=== PATIENT | female | born 1985 | race Caucasian/White ===

== ENCOUNTER → 2016-10-29 | Outpatient (CLI) | payer BC ==
[~2016-10-29] MED LIST: CHOLTAB3 PO; LEVOPOW36; PRENTAB26 PO
== END | disposition home or self-care (01) ==
LOC: C.LAB1850 13:49
PROVIDERS: ATTEND Nurse Practitioner Adult Health
DX: E06.3 Autoimmune thyroiditis (principal)

== ENCOUNTER → 2016-12-31 | Outpatient (CLI) | payer BC | END | disposition home or self-care (01) | LOC: C.PAPS 11:18 | PROVIDERS: ATTEND Obstetrics & Gynecology | DX: Z01.411 Encounter for gynecological examination (general) (routine) with abnormal findings (principal); R87.610 Atypical squamous cells of undetermined significance on cytologic smear of cervix (ASC-US) ==

== ENCOUNTER → 2017-10-15 | Outpatient (CLI) | payer BC | END | disposition home or self-care (01) | LOC: C.LAB1850 15:11 | PROVIDERS: ATTEND Nurse Practitioner Family | DX: E03.9 Hypothyroidism, unspecified (principal); E06.3 Autoimmune thyroiditis ==

== ENCOUNTER 2021-01-19 07:30 | Inpatient (IN) ==
--- NOTE | 2021-01-11 09:40 | Anesthesiology Consultation ---
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 Preoperative COVID19 testing to be completed on 01/17. Chart Review Chart Review: entry processor initiated History Surgery Operation Date: 01/19/21 07:30 Proposed Procedures p Section ( Delivery of Baby Throught Abdominal Inciaion) - Caitlin Corral MD Height/Weight Height: 5 ft 4 in Weight: 76.204 kg Allergies Allergy/AdvReac Type Severity Reaction Status Date / Time No Known Allergies Allergy U Verified 01/10/21 15:01 Medications Home Medications Medication Instructions Recorded Confirmed Last Taken levothyroxine 75 mcg PO QAM 01/05/21 01/10/21 01/04/21 08:00 prenat.vits,katherine,kjj-flbx-ncmed 1 tab PO DAILY 01/05/21 01/10/21 01/04/21 21:00 [ Vitamin] cholecalciferol (vitamin D3) 25 mcg PO QAM 01/10/21 01/10/21 Unknown [Vitamin D3] Past Medical History Medical History Hx of endometriosis Hypothyroidism Varicose vein of leg Past Family History Family History Grandmother (Paternal) Breast cancer Grandmother (Maternal) Family history of diabetes mellitus Other No family history of adverse response to anesthesia Denies family history of Ovarian cancer Prostate cancer Myocardial infarction Colorectal cancer Past Surgical History Surgical History H/O shoulder surgery RT History of cholecystectomy S/P laparoscopic procedure [place] teeth removed Social History Smoking Status: Never smoker Hx Alcohol Use: No Alcohol type: wine Hx Substance Use: No substance use type: does not use
[~2021-01-19 07:30] MED LIST changes: -CHOLTAB3 PO; -LEVOPOW36; +LIDOCAINE 2% MPF LOCAL 5 ML VIAL INFIL ONE; +METOCLOPRAMIDE HCL INJ 5 MG/ML 2 ML VIAL ONE; +MoRPHine SULFATE PF 1 MG/ML 10 ML AMP/VIAL ONE; +ONDANSETRON INJ 2 MG/ML 2 ML VIAL ONE; +OXYTOCIN 10 UNITS/ML VIAL ONE; -PRENTAB26 PO; +PROPOFOL IV EMULSION 10 MG/ML 20 ML VIAL IV ONE
[2021-01-19] MEDS ORDERED: OXYTOCIN 30 UNITS/500 ML BAG IV PRN ×2 (07:49→07:51)
[2021-01-19] MEDS ORDERED: PENICILLIN G POTASSIUM 6 MU in DEXTROSE 5% 250 ML IV STA (07:49)
--- NOTE | 2021-01-19 08:04 | History & Physical Report ---
Date of Service January 19, 2021 Assessment & Plan Admission and Anticipated Discharge Date Admission Date: January 19, 2021 IUP at 39+ weeks with vertex position today - history of breech position. vertex for the past 2 weeks begin PCN G for GBS prophylaxis pitocin induction protocol epidural when requested anticipate vaginal History of Present Illness Primary Care Provider: Brittney Aguirre MD Patient is a 35 yo white female who presents at 39+ weeks for continuation of IOL because of unstable lie. Baby had been breech with unsuccessful version attempt but spontaneously verted to cephalic 2 weeks ago. cervical balloon was placed last night after confirming baby was still vertex. balloon not expelled yet but she did experience bloody show and cramping intermittently overnight. GBS positive Allergies Allergy/AdvReac Type Severity Reaction Status Date / Time No Known Allergies Allergy U Verified 01/18/21 13:22 Home Medications Medication Instructions Recorded Confirmed Type cholecalciferol (vitamin D3) 25 mcg PO DAILY 01/18/21 01/18/21 History [Vitamin D3] levothyroxine 75 mcg PO DAILY 01/18/21 01/18/21 History vit no.[id number] 1 tab PO DAILY 01/18/21 01/18/21 History [ Vitamin] Patient History Medical History Hx of endometriosis Hypothyroidism Varicose vein of leg Surgical History H/O shoulder surgery RT History of cholecystectomy S/P laparoscopic procedure [place] teeth removed Family History Grandmother (Paternal) Breast cancer Grandmother (Maternal) Family history of diabetes mellitus Other No family history of adverse response to anesthesia Denies family history of Ovarian cancer Prostate cancer Myocardial infarction Colorectal cancer Social History Smoking Status: Never smoker Second Hand Exposure: No; Hx Alcohol Use: No Hx Substance Use: No Preferred Language: Bulgarian Communication Ability: Effective Visual Impairment: No Limitations Hearing Ability: Normal Commissary Clerk Required: No Beliefs That Will Affect Care: None marital status: marital status details: Thor Lara [phone] Current Living Situation: Spouse Current Living Situation Comment: lives with spouse, daughter, dogs current occupational status: employed current occupation: MENTAL HEALTH PROFESSIONAL Feels Safe at Home: Yes Safety Concerns: Feels Safe At This Time Childhood Exposure to Second-Hand Smoke: Yes Dental Care, Regularly: Yes Physical Activity Frequency: Daily Seatbelt Use: always Sunscreen Use: Yes Assistive Devices: None Assistive Devices Comment: GLASSES FOR DRIVING ONLY Review of Systems All systems reviewed & are unremarkable except as noted in HPI & below Physical Exam Constitutional: WD/WN, vitals as above Respiratory: normal respiratory effort, lungs clear to auscultation Cardiovascular: RRR, no murmur, no edema Psychiatric: A+Ox3, euthymic affect Genitourinary: OB Exam Abdomen: + vertex (by cervix exam and sonogram this AM) and + irregular contractions Manual OB Exam: + cervical dilation 4 cm, + cervical effacement 70% and + station high (-3) OB Exam Monitor Tracing: + external FHT monitor used, + external uterine monitor used, + category I and + normal FHT variability balloon still in vagina- water removed and perdomo removed easily Results & Data ([facility]) Vital Signs (Past 12 Hours) Vital Signs Pulse BP 01/19/21 07:48 79 114/72 Coding Level of Care Code None
[2021-01-19 08:25] LABS: Hemoglobin 13.3 g/dL (12.0-16.0); Mean Corpuscular Hemoglobin 31.9 pg (25-34); Mean Corpuscular Hgb Conc 34.1 g/dL (32-36); Mean Corpuscular Volume 93.5 fL (80-100); Mean Platelet Volume 9.7 fL (7.4-10.4); Platelet Count 157 K/uL (130-400); RDW Coefficient of Variation 13.1 % (11.5-14.5); RDW Standard Deviation 44.6 fL (36.4-46.3); Red Blood Count 4.17 M/uL (4.2-5.4); White Blood Count 10.71 K/uL (4.8-10.8)
[2021-01-19] MEDS: LACTATED RINGER'S 1,000 ML IV PRN ×2 (08:30→14:58)
--- NOTE | 2021-01-19 09:01 | Labor Progress Brief Note ---
Date of Service January 19, 2021 Subjective Admit for IOL due to unstable lie, currently Vtx by US this AM per Dr. Foley. Kiki O'N removed this AM. No LOF or VB. Good FM. Assessment & Plan (1) Unstable lie, antepartum: Had scheduled CS for breech today but fetus now vertex so undergoing IOL. PCN for GBS. Will AROM after 2nd dose abx. Pit ordered. Epidural on request. Admission and Anticipated Discharge Date Admission Date: January 19, 2021 Physical Exam Physical Exam: Ctx Q5 irreg Cvx 4cm per Dr. Foley FHT Cat 1 PCN now running Pitocin ordered [facility] & [facility]) Vital Signs (Past 12 Hours) Vital Signs Temp Pulse Resp BP 01/19/21 08:16 98.6 F 79 18 114/72 01/19/21 07:48 79 114/72 Coding Level of Care Code None Diagnoses Unstable lie, antepartum O32.0XX0
[2021-01-19] MEDS: LEVOTHYROXINE SODIUM 75 MCG TABLET PO SCH (10:57)
[2021-01-19] MEDS: PENICILLIN G POTASSIUM 3 MU in DEXTROSE 5% 100 ML IV PRN ×2 (12:54→16:58)
[2021-01-19] MEDS ORDERED: ePHEDrine sulfate 50 MG/ML AMP ONE (14:35)
[2021-01-19] MEDS ORDERED: BUPIVACAINE 0.25% 30 ML VIAL ONE (14:35)
[2021-01-19] MEDS ORDERED: SODIUM CHLORIDE 0.9% INJ 10 ML VIAL ONE (14:35)
[2021-01-19] MEDS ORDERED: fentaNYL citrate 100 MCG/2 ML VIAL ONE (14:35)
[2021-01-19] MEDS ORDERED: fentaNYL 2MCG/ML ROPIVACAINE 1.25MG/ML 100 ML BAG EPI ONE (14:35)
[2021-01-19] MEDS ORDERED: NALOXONE HCL 1 MG in SODIUM CHLORIDE 0.9% 1000ML 1,000 ML IV PRN (15:09)
[2021-01-19] MEDS ORDERED: ePHEDrine sulfate 50 MG/ML AMP IV PRN (15:09)
[2021-01-19] MEDS ORDERED: ONDANSETRON INJ 2 MG/ML 2 ML VIAL IV PRN (15:09)
[2021-01-19] MEDS ORDERED: fentaNYL 2MCG/ML ROPIVACAINE 1.25MG/ML 100 ML BAG EPI PRN (15:09)
[2021-01-19] MEDS ORDERED: NALOXONE HCL 0.4 MG/1 ML VIAL/CARP IV PRN (15:09)
--- NOTE | 2021-01-19 20:25 | Delivery Summary ---
Vaginal Delivery Summary Date of Service January 19, 2021 Vaginal Delivery Summary DIAGNOSES: 1. Santoro intrauterine at 39w2d gestation. 2. Induction of labor. 3. Group B Streptococcus Pos. PROCEDURE: Spontaneous vaginal delivery and repair of second degree laceration. SURGEON: Caitlin Corral MD. COMMAND CENTER OFFICER: None. ESTIMATED BLOOD LOSS: 300 mL. COMPLICATIONS: None. PLACENTA: Spontaneous and intact with a 3-vessel cord. DISPOSITION: Stable to labor and delivery. DESCRIPTION: The patient pushed well and brought the head to in DOA position. Due to bradycardia, prep with betadine was done and straight catheter was used to empty the bladder of 100cc of clear yellow urine while the patient and FOB were counseled on the possible need for VAVD, and a Kiwi was placed on the table. However the mother pushed very effectively and it was not ultimately felt to be necessary to apply the Kiwi. The infant's head delivered and restituted facing maternal left, with the perineum protected during this time. There was a very tight nuchal cord. As the mother strained and before the cord could be reduced, the cord avulsed. The left shoulder was anterior and the right hand was presenting compound alongside the R cheek/shoulder. The mother was encouraged to push immediately due to the cord avulsion, which she did. The shoulders and body delivered immediately, and the was placed on the maternal abdomen where the approximately 1cm stump of cord at the umbilicus was pinched and then secured with a cord clamp. The infant was vigorous and moving all extremities, and making respiratory efforts. The placenta delivered spontaneously and was noted to be intact and with a 3VC. The cervix, vagina and perineum were examined and were found to have a small second- degree laceration which was repaired using vicryl suture in the usual manner. The fundus was firm and lochia minimal immediately after delivery. [facility] Vaginal Delivery Charge Vaginal Delivery Codes: 42024 global code for the antepartum, delivery, and post-
[2021-01-19] MEDS ORDERED: SUPERCREAM 0.870% 15 GM JAR EXT PRN (20:28)
[2021-01-19] MEDS ORDERED: DIPHTHERIA/TETANUS/PERTUSSIS 0.5 ML SYR/VIAL IM ONE (20:28)
[2021-01-19] MEDS ORDERED: oxyCODONE/ACETAMINOPHEN 5mg/325mg TAB PO PRN (20:28)
[2021-01-19] MEDS ORDERED: BENZOCAINE 20% AER SPR 82.5 GM CAN EXT PRN (20:28)
[2021-01-19] MEDS ORDERED: ACETAMINOPHEN 325 MG TAB PO PRN (20:28)
[2021-01-19] MEDS ORDERED: HYDROCORTISONE ACETATE 25 MG SUPP PR PRN (20:28)
--- NOTE | 2021-01-19 21:25 | Anesthesia Procedure Note ---
Date of Service January 19, 2021 Anesthesia Post Epidural Note Vital Signs Vital Signs: Temp Pulse Resp BP Pulse Ox 36.8 C 91 H 20 106/58 L 99 01/19/21 19:07 01/19/21 21:15 01/19/21 19:45 01/19/21 21:15 01/19/21 20:07 Pain Intensity Abdomen: Pain Intensity: 0 Notes Mental Status: alert / awake / arousable and participated in evaluation Nausea / Vomiting: adequately controlled Pain: adequately controlled Airway Patency, RR, SpO2: stable & adequate BP & HR: stable & adequate Hydration State: stable & adequate Neuraxial Anesthesia: was administered and sensory block is resolving Anesthetic Complications: no major complications apparent Epidural: Removed without complications and With tip intact
[2021-01-19] MEDS: DOCUSATE SODIUM 100 MG CAP PO SCH (21:46)
[2021-01-20] MEDS: IBUPROFEN 600 MG TAB PO PRN ×2 (04:19→21:35)
--- NOTE | 2021-01-20 06:14 | Obstetrical Progress Note ---
Date of Service January 20, 2021 Assessment & Plan (1) state: Recovering normally from with 2nd degree repair. Prefers to stay to PPD#2 Subjective Ambulation: ambulating normally Voiding: no voiding problems Passing Gas:: Yes Diet Tolerance:: regular diet Lochia:: Small Feeding Type:: breast feeding Physical Exam Constitutional WD/WN, vitals as above Eyes PERRL, conjunctivae normal, anicteric sclerae Neck normal visual inspection Respiratory normal respiratory effort and able to speak in complete sentences; no respiratory distress and no labored breathing Cardiovascular Rate/Rhythm: regular rate and regular rhythm Extremities: no edema Chest (Breasts) Chest: normal inspection of chest Gastrointestinal (Abdomen) Inspection/Auscultation: abdomen normal to inspection Soft, postgravid Psychiatric A+Ox3, euthymic affect Genitourinary OB Exam Abdomen: + fundal height Fundus: + firm and + relation to umbilicus (fundus just below umbilicus); not tender Results & Data ([facility]) Vital Signs (Past 12 Hours) Vital Signs Temp Pulse Pulse Resp BP BP Pulse Ox 01/20/21 04:10 98.6 F 81 16 111/71 95 01/19/21 23:36 99.0 F 87 16 105/65 94 01/19/21 22:45 18 01/19/21 22:10 18 01/19/21 22:00 91 H 110/64 01/19/21 21:45 102 H 106/61 01/19/21 21:40 18 01/19/21 21:30 101 H 102/56 L 01/19/21 21:15 91 H 106/58 L 01/19/21 21:10 18 01/19/21 21:00 97 H 115/60 01/19/21 20:55 18 01/19/21 20:45 99 H 121/65 01/19/21 20:40 18 01/19/21 20:30 87 118/60 01/19/21 20:25 97.7 F 18 01/19/21 20:15 95 H 125/61 01/19/21 20:10 18 01/19/21 20:07 103 H 99 01/19/21 20:06 92 H 131/65 01/19/21 20:02 98 H 98 01/19/21 19:57 100 H 100 01/19/21 19:54 101 H 90 01/19/21 19:52 108 H 73 L 01/19/21 19:51 117 H 159/84 H 01/19/21 19:49 114 H 86 L 01/19/21 19:47 112 H 100 01/19/21 19:45 20 01/19/21 19:43 102 H 85 L 01/19/21 19:42 100 H 100 01/19/21 19:38 91 H 89 L 01/19/21 19:37 88 121/70 100 01/19/21 19:32 85 96 01/19/21 19:31 86 92 01/19/21 19:27 81 100 01/19/21 19:25 18 01/19/21 19:23 77 119/67 01/19/21 19:22 77 100 01/19/21 19:17 82 98 01/19/21 19:12 84 99 01/19/21 19:07 98.2 F 84 18 117/70 100 01/19/21 19:02 89 100 01/19/21 19:00 18 01/19/21 18:57 86 100 01/19/21 18:52 86 111/70 100 01/19/21 18:47 86 100 01/19/21 18:45 18 01/19/21 18:42 82 99 01/19/21 18:37 76 100 01/19/21 18:36 75 113/69 01/19/21 18:32 80 100 01/19/21 18:27 80 99 01/19/21 18:22 77 99 01/19/21 18:20 80 109/62 01/19/21 18:17 90 100 01/19/21 18:15 18
[2021-01-20] MEDS: LEVOTHYROXINE SODIUM 75 MCG TABLET PO SCH (06:22)
[2021-01-20 07:11] LABS: Hematocrit (blood only) 38.6 % (37-47); Hemoglobin 13.1 g/dL (12.0-16.0); Mean Corpuscular Hemoglobin 31.9 pg (25-34); Mean Corpuscular Hgb Conc 33.9 g/dL (32-36); Mean Corpuscular Volume 93.9 fL (80-100); Platelet Count 170 K/uL (130-400); RDW Coefficient of Variation 13.1 % (11.5-14.5); RDW Standard Deviation 44.7 fL (36.4-46.3); Red Blood Count 4.11 M/uL (4.2-5.4); White Blood Count 17.42 K/uL (4.8-10.8)
[2021-01-20] MEDS: PRENATAL VITAMIN 1 TAB PO SCH (08:19)
[2021-01-20] MEDS: DOCUSATE SODIUM 100 MG CAP PO SCH ×2 (08:19→21:26)
[2021-01-21] MEDS: LEVOTHYROXINE SODIUM 75 MCG TABLET PO SCH (06:04)
[2021-01-21 07:06] LABS: Hematocrit (blood only) 36.6 % (37-47); Hemoglobin 12.3 g/dL (12.0-16.0)
--- NOTE | 2021-01-21 07:48 | Obstetrical Progress Note ---
Date of Service January 21, 2021 Assessment & Plan (1) state: PPD#2 doing well, no concerns. Reviewed DC instructions, questions answered. Followup 6w pp. Subjective Ambulation: ambulating normally Voiding: no voiding problems Diet Tolerance:: regular diet Lochia:: Moderate Feeding Type:: breast feeding PPD#2 doing well. Review of Systems All systems reviewed & are unremarkable except as noted in HPI & below Physical Exam Constitutional WD/WN, vitals as above no acute distress Respiratory normal respiratory effort Cardiovascular Rate/Rhythm: regular rate and regular rhythm Gastrointestinal (Abdomen) Inspection/Auscultation: abdomen normal to inspection; abdomen not distended Percussion/Palpation: abdomen soft Genitourinary OB Exam Abdomen: + fundal height Fundus: + firm; not tender Results & Data ([facility]) Vital Signs (Past 12 Hours) Vital Signs Temp Pulse Resp BP Pulse Ox 01/20/21 23:20 36.5 C 68 18 109/68 97
[2021-01-21] MEDS: DOCUSATE SODIUM 100 MG CAP PO SCH (08:43)
[2021-01-21] MEDS: PRENATAL VITAMIN 1 TAB PO SCH (08:43)
== END 2021-01-21 11:20 | disposition home or self-care (01) | DRG 807 ==
LOC: EDSTATUS 07:30 → 4S1 07:40 → 4S2 23:00
DX: Z3A.39 39 weeks gestation of pregnancy; Z37.0 Single live birth; O99.824 Streptococcus B carrier state complicating childbirth; O69.1XX0 Labor and delivery complicated by cord around neck, with compression, not applicable or unspecified; O32.0XX0 Maternal care for unstable lie, not applicable or unspecified; O70.1 Second degree perineal laceration during delivery; O32.6XX0 Maternal care for compound presentation, not applicable or unspecified